=== PATIENT | female | born 1965 | race African-American/Black ===

== ENCOUNTER 2018-02-01 21:23 | Emergency (ER) | payer OTHER ==
[~2018-02-01] VITALS: Ht 154.9 cm; Wt 96.6 kg
[~2018-02-01 21:23] MED LIST: DIFLUCAN150 MG PO; FLAGYL500 MG PO; HYDROCHLOROTH12.5 M2 PO; HYDROCHLOROTHIA25 M1 PO
[2018-02-01 21:35] VITALS: BP 173/90
== END 2018-02-01 22:16 | disposition home or self-care (01) ==
LOC: ER 21:23
DX: H93.8X2 Other specified disorders of left ear (principal); I10 Essential (primary) hypertension; F17.210 Nicotine dependence, cigarettes, uncomplicated

== ENCOUNTER 2018-09-15 12:09 | Emergency (ER) | payer OTHER ==
[~2018-09-15] VITALS: Ht 154.9 cm; Wt 99.8 kg
[2018-09-15 12:43] LABS: URINE BILIRUBIN NEGATIVE (Negative); URINE BLOOD TRACE (Negative); URINE CLARITY CLEAR; URINE COLOR YELLOW; URINE GLUCOSE-RANDOM* NEGATIVE (Negative); URINE KETONES NEGATIVE (Negative); URINE LEUKOCYTES-REFLEX NEGATIVE (Negative); URINE NITRITE-REFLEX NEGATIVE (Negative); URINE PROTEIN (DIPSTICK) NEGATIVE (Negative); URINE UROBILINOGEN 0.2 E.U./dl (0.2-1.0)
[2018-09-15] MEDS ORDERED: HYDROCHLOROTHIA25 M2 PO ×2 (14:44→15:26)
[2018-09-15 14:56] LABS: ABSOLUTE NEUTROPHILS 2.9 thou/uL (1.4-8.2); BASOPHILS 0.9 % (0.0-2.0); EOSINOPHILS 1.2 % (0.0-3.0); HEMATOCRIT 41.6 % (37.0-47.0); HEMOGLOBIN 14.3 gm/dL (12.0-15.0); LYMPHOCYTES 49.5 % (24.0-44.0); MCH 24.5 pg (26.0-34.0); MCHC 34.4 g/dL (28.0-37.0); MCV 71.2 fL (80.0-100.0); MONOCYTES 8.7 % (1.0-8.0); PLATELET COUNT 240 thou/uL (150-400); POLYS 39.7 % (36.0-66.0); RBC 5.84 mil/uL (4.20-5.00); WBC 7.2 thou/uL (4.0-11.0)
[2018-09-15 15:03] LABS: CALCIUM 9.3 mg/dL (8.5-10.1); CREATININE 0.7 mg/dL (0.6-1.0); POTASSIUM 3.6 mmol/L (3.5-5.1)
[2018-09-15 15:08] LABS: ALBUMIN 3.5 g/dL (3.4-5.0); TOTAL BILIRUBIN 0.5 mg/dL (<0.1-1.0); TOTAL PROTEIN 7.8 g/dL (6.4-8.2)
[2018-09-15] MEDS ORDERED: TRAMADOL 50 MG50 MG PO (15:26)
[2018-09-15] MEDS ORDERED: NORVASC5 MG PO (15:26)
[2018-09-15] MEDS ORDERED: NORFLEX100 MG PO (15:26)
[2018-09-15 16:16] VITALS: BP 143/58
== END 2018-09-15 16:18 | disposition home or self-care (01) ==
LOC: ER 12:09
PROVIDERS: Emergency Medicine; Nurse Practitioner Family
DX: K80.20 Calculus of gallbladder without cholecystitis without obstruction (principal); S29.012A Strain of muscle and tendon of back wall of thorax, initial encounter; Z76.0 Encounter for issue of repeat prescription; I10 Essential (primary) hypertension; F17.210 Nicotine dependence, cigarettes, uncomplicated; X58.XXXA Exposure to other specified factors, initial encounter; Y93.89 Activity, other specified; Y92.89 Other specified places as the place of occurrence of the external cause; Y99.8 Other external cause status

== ENCOUNTER 2019-01-16 13:20 | Emergency (ER) | payer OTHER ==
[~2019-01-16] VITALS: Ht 152.4 cm; Wt 104.3 kg
[~2019-01-16 13:20] MED LIST changes: +HYDROCHLOROTHIA25 M2 PO; +NORFLEX100 MG PO; +NORVASC5 MG PO; +TRAMADOL 50 MG50 MG PO
[2019-01-16 14:53] LABS: URINE BILIRUBIN NEGATIVE (Negative); URINE BLOOD NEGATIVE (Negative); URINE CLARITY CLEAR; URINE COLOR YELLOW; URINE GLUCOSE-RANDOM* NEGATIVE (Negative); URINE KETONES NEGATIVE (Negative); URINE LEUKOCYTES-REFLEX NEGATIVE (Negative); URINE NITRITE-REFLEX NEGATIVE (Negative); URINE PROTEIN (DIPSTICK) NEGATIVE (Negative); URINE SPECIFIC GRAVITY <= 1.005 (1.005-1.035); URINE UROBILINOGEN 0.2 E.U./dl (0.2-1.0)
[2019-01-16 15:02] LABS: HEMATOCRIT 42.2 % (37.0-47.0); HEMOGLOBIN 14.4 gm/dL (12.0-15.0); MCH 24.5 pg (26.0-34.0); MCHC 34.2 g/dL (28.0-37.0); MCV 71.5 fL (80.0-100.0); RBC 5.9 mil/uL (4.20-5.00); RDW 15.5 % (10.5-14.5); WBC 6.7 thou/uL (4.0-11.0)
[2019-01-16 15:10] LABS: CALCIUM 9.2 mg/dL (8.5-10.1); CREATININE 0.8 mg/dL (0.6-1.0); POTASSIUM 4.1 mmol/L (3.5-5.1)
[2019-01-16 15:16] LABS: ALBUMIN 3.7 g/dL (3.4-5.0); TOTAL BILIRUBIN 0.6 mg/dL (<0.1-1.0); TOTAL PROTEIN 7.9 g/dL (6.4-8.2)
[2019-01-16] MEDS ORDERED: IBUPROFEN 400400 M2 PO (15:38)
[2019-01-16 16:23] VITALS: BP 129/68
== END 2019-01-16 16:23 | disposition home or self-care (01) ==
LOC: ER 13:20
PROVIDERS: Student in an Organized Health Care Education/Training Program
DX: R10.2 Pelvic and perineal pain (principal); I10 Essential (primary) hypertension; F17.210 Nicotine dependence, cigarettes, uncomplicated; Z87.440 Personal history of urinary (tract) infections; Z90.49 Acquired absence of other specified parts of digestive tract; Z88.6 Allergy status to analgesic agent

== ENCOUNTER 2020-12-07 13:38 | Emergency (ER) | payer BC, OTHER ==
[~2020-12-07] VITALS: Ht 154.9 cm; Wt 99.8 kg
[~2020-12-07 13:38] MED LIST changes: +IBUPROFEN 400400 M2 PO
[2020-12-07 14:49] LABS: ABSOLUTE NEUTROPHILS 6.1 thou/uL (1.4-8.2); BASOPHILS 0.8 % (0.0-2.0); EOSINOPHILS 3.3 % (0.0-3.0); HEMATOCRIT 41.2 % (37.0-47.0); HEMOGLOBIN 14.1 gm/dL (12.0-15.0); LYMPHOCYTES 25.4 % (24.0-44.0); MCHC 34.2 g/dL (28.0-37.0); MCV 73.1 fL (80.0-100.0); MONOCYTES 9.2 % (1.0-8.0); POLYS 61.3 % (36.0-66.0); RBC 5.63 mil/uL (4.20-5.00); RDW 15.1 % (10.5-14.5); WBC 9.9 thou/uL (4.0-11.0)
[2020-12-07 15:04] LABS: ANION GAP 8 mmol/L (7-16); BUN 10 mg/dL (7-18); CALCIUM 8.9 mg/dL (8.5-10.1); CHLORIDE 107 mmol/L (98-107); CO2 28 mmol/L (21-32); CREATININE 0.8 mg/dL (0.6-1.0); GLUCOSE 88 mg/dL (74-106); POTASSIUM 3.4 mmol/L (3.5-5.1); SODIUM 143 mmol/L (136-145)
[2020-12-07 15:14] LABS: ALBUMIN 3.4 g/dL (3.4-5.0); SGOT 12 U/L (15-37); SGPT 17 U/L (14-59); TOTAL BILIRUBIN 0.5 mg/dL (0.2-1.0); TOTAL PROTEIN 7.4 g/dL (6.4-8.2); TROPONIN-I <0.06 ng/mL (<0.06)
--- NOTE | 2020-12-07 15:18 | EKG ---
[address] [address] ELECTROCARDIOGRAM REPORT Name: LALITO DIAS Room #: [facility]ude[facility] [id number] Admission: 12/07/20 Attend Phys: Discharge: Date of : 67 Report #: [id number] [facility] ED Test Date: 2020-12-07 Test Time: 13:47:26 Pat Name: LALITO IDAS Department: Room: Gender: F [employer]: VINCE : 1965 Requested By: Angle Parry Order Number: [id number] MD: Stuart Babcock Measurements Intervals [place] Rate: 88 P: 47 FL: 152 QRS: 7 QRSD: 72 T: -8 QT: 356 QTc: 431 Interpretive Statements Sinus rhythm Probable left atrial enlargement Inferior infarct, age indeterminate No previous ECG available for comparison Electronically Signed On 12-07-2020 15:18:26 CDT by Stuart Babcock [email or web address] <ELECTRONICALLY SIGNED> By: Stuart Babcock MD, [facility] 12/07/20 1518 1347 [id number] Stuart Babcock MD, FACC /EPI
[2020-12-07 15:26] LABS: PLATELET COUNT 240 thou/uL (150-400)
[2020-12-07 15:27] LABS: LARGE PLATELETS RARE
[2020-12-07] MEDS ORDERED: PREDNISONE 20 M20 MG PO (17:03)
[2020-12-07] MEDS ORDERED: PROMETH-CODEIN 65 ML PO (17:03)
[2020-12-07] MEDS ORDERED: AMOXIL 875 MG875 M2 PO (17:03)
[2020-12-07] MEDS ORDERED: DIFLUCAN150 MG PO (17:07)
[2020-12-07 17:45] VITALS: BP 152/86
== END 2020-12-07 17:45 | disposition home or self-care (01) ==
LOC: ER 13:38
PROVIDERS: Physician Assistant
DX: R09.89 Other specified symptoms and signs involving the circulatory and respiratory systems (principal); R05 Cough; I10 Essential (primary) hypertension; F17.210 Nicotine dependence, cigarettes, uncomplicated; Z79.899 Other long term (current) drug therapy; Z90.49 Acquired absence of other specified parts of digestive tract; Z88.8 Allergy status to other drugs, medicaments and biological substances; Z20.822 Contact with and (suspected) exposure to COVID-19

== ENCOUNTER 2021-03-15 11:48 | Emergency (ER) | payer BC, OTHER ==
[~2021-03-15] VITALS: Ht 165.1 cm; Wt 104.3 kg
[~2021-03-15 11:48] MED LIST changes: +AMOXIL 875 MG875 M2 PO; +PREDNISONE 20 M20 MG PO; +PROMETH-CODEIN 65 ML PO
[2021-03-15] MEDS ORDERED: TESSALON PERLE100 MG PO (13:10)
[2021-03-15] MEDS ORDERED: IBUPROFEN 600600 M1 PO (13:10)
[2021-03-15 13:37] VITALS: BP 135/86
== END 2021-03-15 13:40 | disposition home or self-care (01) ==
LOC: ER 11:48
DX: J06.9 Acute upper respiratory infection, unspecified (principal); Z20.822 Contact with and (suspected) exposure to COVID-19; I10 Essential (primary) hypertension; F17.210 Nicotine dependence, cigarettes, uncomplicated; Z79.1 Long term (current) use of non-steroidal anti-inflammatories (NSAID); Z79.891 Long term (current) use of opiate analgesic; Z79.899 Other long term (current) drug therapy; Z88.6 Allergy status to analgesic agent